=== PATIENT | female | born 1950 | race Caucasian/White ===

== ENCOUNTER → 2016-08-08 | Day surgery (SDC) | payer BC, OTHER ==
[2016-07-18 12:17] VITALS: Ht 160 cm; Wt 109.1 kg
[~2016-08-08] VITALS: Ht 160 cm; Wt 109.1 kg
[~2016-08-08] MED LIST: 500ML BSS 0.3ML EPI 1:1000PF IRRIG ONE; ACET-1256 PO; ACETAMINOPHEN 325 MG TAB PO PRN; ALBI1INJ2 INJ; AMVISC PLUS 0.8ML SYRINGE INT OCU ONE; ATROPINE SULFATE 0.1 MG/ML 5ML SYR IV PRN; BRIMONIDINE TART 0.2% OP SOLN PER DROP CHARGE ONE; ENDOCOAT 0.85ML SYRINGE INT OCU ONE; ERGO1CAP35 PO; EpHEDrine SULFATE INJ 50 MG/ML AMP IV PRN; EpINEphrine INJ 1MG/ML AMP 1 MG/ML AMP ONE; FENTANYL CITRATE INJ 50 MCG/1 ML 2 ML VIAL ONE; KETOROLAC 0.5% OP SOLN PER DROP CHARGE OPR SCH; LACTATED RINGER'S 1000ML 500 ML IV SCH; LIDOCAINE 4% OP SOLN DROP CHARGE ONE; LIDOCAINE 4% OP SOLN DROP CHARGE OPR SCH; LIDOCAINE HCL 1% MPF 2 ML VIAL ONE; METF1TAB53 PO; MIDAZOLAM HCL 1 MG/ML 2ML VIAL ONE; MOXIFLOXACIN OPH SOLN PER DROP CHARGE ONE; POVIDONE-IODINE OP SOLN 30 ML BTL ONE; PROPARACAINE 0.5% OP SOLN PER DROP CHARGE OPR SCH; TELM40TA11 PO; TOBRAMYCIN/DEXAMETHASONE OPH OINT PER APPLN CHARGE ONE; TRYPAN BLUE 0.15% FOR SURGI CENTER ONLY OP ONE; VISIONBLUE 0.06% 0.5ML/SYR OP ONE
[2016-08-08] MEDS: PHENYLEPHRINE HCL 2.5% OP SOLN PER DROP CHARGE OPR SCH ×2 (07:26→07:31)
[2016-08-08] MEDS: TROPICAMIDE 1% OP SOLN PER DROP CHARGE OPR SCH ×2 (07:28→07:32)
[2016-08-08] MEDS: CYCLOPENTOLATE HCL 1% OP SOLN PER DROP CHARGE OPR SCH ×2 (07:29→07:34)
[2016-08-08] MEDS: MOXIFLOXACIN OPH SOLN PER DROP CHARGE OPR SCH ×2 (07:30→07:39)
--- NOTE | 2016-08-08 07:35 | History & Physical Bridge - SC ---
H&P Re-Evaluation Bridge Note: I have examined the patient, reviewed the History & Physical and in the interval since the performance of the History & Physical I have noted the following changes of clinical significance: No changes noted
--- NOTE | 2016-08-08 08:38 | [facility] Post Operative Brief Note ---
Immediate Operative Summary Operative Date Aug 08, 2016. Pre-Operative Diagnosis Right Eye Cataract Post-Operative Diagnosis Same Procedure(s) Performed Right Cataract Phacoemulsification With Intraocular Lens Implant Surgeon Dr. Katherine Nye Coater Smoking Pipe Surgeon(s) None Estimated Blood Loss 0 Findings cataract right eye Specimens None Complication(s) None Disposition Recovery Room / PACU
--- NOTE | 2016-08-08 08:38 | Discharge Instructions-SurgCtr ---
Discharge Instructions Date of Service Aug 08, 2016. Visit Reason for Visit: Cataract Right Eye Discharge Discharge Diagnosis / Problem: cataract right eye Discharge Goals Goal(s): Improve function Medications Stopped Medications Name(s): Metformin stopped Monday Activity Recommendations Activity Limitations: per Instructions/Follow-up section Lifting Limitations: no more than 5 pounds Anesthesia . Post Anesthesia Instructions: If you have had General Anesthesia or IV Sedation: * Do not drive today. * Resume driving when surgeon permits. * Do not make important decisions or sign legal documents today. * Call surgeon for: 1. Temperature elevations greater than 101 degrees F. 2. Uncontrollable pain. 3. Excessive bleeding. 4. Persistent nausea and vomiting. 5. Medication intolerance (nausea, vomiting or rash). * For nausea and vomiting use only clear liquids such as: tea, soda, bouillon until nausea subsides, then gradually increase diet as tolerated. * If you have any concerns or questions, call your surgeon's office. If physician is unavailable and it is an emergency, call 911 or go to the nearest emergency room. . Instructions / Follow-Up Instructions / Follow-Up ACTIVITY RECOMMENDATIONS: * Light activities * You may walk outside, read, watch television. * Mild irritation and blurred vision are common for the first few days, redness around the white part of the eye is common. MEDICATIONS: Resume previous medications unless instructed otherwise by your surgeon. Eye drops (today and tomorrow): Cipro - one drop in operative eye every 2 hours while awake Prednisolone 1% - one drop in operative eye every 2 hours while awake SPECIAL CARE INSTRUCTIONS: * If any problems or concerns, please call Dr. Nye's office at . * Keep plastic shield taped over eye to sleep at night. * Keep plastic shield taped over eye except to administer eye drops. * Keep plastic shield on until office visit the following day. FOLLOW UP VISIT: Follow-up with Dr. Nye in the [place] office as scheduled. If not already scheduled, please call the office at . Diet Recommendations Home Diet: resume previous diet Procedures Procedures Performed: Right Cataract Phacoemulsification With Intraocular Lens Implant Pending Studies Studies pending at discharge: no Medical Emergencies . Who to Call and When: Medical Emergencies: If at any time you feel your situation is an emergency, please call 911 immediately. . Non-Emergent Contact Non-Emergency issues call your: Cattle Dipper . . "Provider Documentation" section prepared by Quincy Nye. .
[2016-08-08 08:40] VITALS: TEMP 36.3
--- NOTE | 2016-08-08 08:50 | Anesthesia Progress Nt - [facility] ---
Anesthesia Post Op Note Date & Time Aug 08, 2016 at 08:50 Vital Signs Pain Intensity: 0 Vital Signs Past 12 Hours Date Time Temp Pulse Resp B/P (MAP) Pulse Ox O2 Delivery O2 Flow Rate FiO2 08/08/16 08:40 36.3 92 18 129/81 (97) 94 Room Air 08/08/16 07:20 36.5 88 20 157/88 (111) 94 Room Air Notes Mental Status: alert / awake / arousable, participated in evaluation Pt Amnestic to Procedure: Yes Nausea / Vomiting: adequately controlled Pain: adequately controlled Airway Patency, RR, SpO2: stable & adequate BP & HR: stable & adequate Hydration State: stable & adequate Anesthetic Complications: no major complications apparent
[2016-08-08 09:03] VITALS: BP 137/84; PULSE 88; O2SAT 95
--- NOTE | 2016-08-08 09:48 | OPERATIVE REPORT ---
DATE OF OPERATION: 08/08/2016 PREOPERATIVE DIAGNOSIS: Dense nuclear sclerotic cataract, right eye. POSTOPERATIVE DIAGNOSIS: Same. PROCEDURE PERFORMED: Phacoemulsification cataract extraction with intraocular lens placement with the use of Trypan blue, right eye. COMPLICATIONS: None. ESTIMATED BLOOD LOSS: None. ANESTHESIA: Local with sedation. DESCRIPTION OF PROCEDURE: After informed consent was obtained in the holding area, the patient was wheeled back to the operating room, where cardiac monitoring leads and oxygen by nasal cannula was administered by anesthesia. Gentle IV sedation was given and the patient's right eye was prepped and draped in the usual sterile fashion. A wire lid speculum was placed in the right eye and the operating microscope swung into position. Due to the patient's corneal edema from the failed PK graft, topical glycerin was placed on the surface of the right eye for approximately 3 minutes. After 3 minutes time and some corneal clearing, the glycerin was irrigated off the surface of the eye. A paracentesis port was then made at the 11 o'clock position of the patient's right eye. The anterior chamber was then filled with 1% nonpreserved lidocaine for anesthesia. Air was then placed inside the anterior chamber, underneath which Trypan blue capsular stain was used to stain the anterior capsule. Primary incision was then made at the 9 o'clock position of the patient's right eye using a 2.2-mm keratome blade. The anterior chamber was then irrigated with BSS to clear out the Trypan blue and an air bubble and EndoCoat and Amvisc was then used in a soft shell fashion. A curved linear capsulorrhexis was then created using a cystotome and Utrata forceps. BSS and hydrodissection cannula was then used to hydrodissect the lens nucleus away from the capsular bag. The phacoemulsification handpiece was then used in a stop and chop fashion to remove the lens nucleus. Irrigation aspiration handpiece was then used to remove the residual cortical material. The eye was then filled with Amvisc and a Bausch and Lomb MX60, 21.0 Diopter intraocular lens was injected into the capsular bag. The primary incision was then hydrated and the irrigation-aspiration handpiece was used to remove the viscoelastic material from the eye. The wounds were noted to be watertight. The wire lid speculum was removed from the eye. Vigamox, brimonidine and TobraDex ointment were placed on the eye and the eye was shielded. The patient tolerated the procedure well and was taken to recovery area in stable condition. I attest to the content of the Intraoperative Record and any orders documented therein. Any exception s are noted below.
== END | disposition home or self-care (01) ==
LOC: X.SURG 06:31
PROVIDERS: ATTEND Ophthalmology
DX: H25.11 Age-related nuclear cataract, right eye (principal); E11.9 Type 2 diabetes mellitus without complications; H18.51 Endothelial corneal dystrophy; I10 Essential (primary) hypertension; Z90.710 Acquired absence of both cervix and uterus; Z83.3 Family history of diabetes mellitus

== ENCOUNTER → 2017-10-02 | Day surgery (SDC) | payer BC, OTHER ==
[2017-09-19 14:47] VITALS: Ht 160 cm; Wt 109.1 kg
[~2017-10-02] VITALS: Ht 160 cm; Wt 109.1 kg
[~2017-10-02] MED LIST changes: -500ML BSS 0.3ML EPI 1:1000PF IRRIG ONE; -ALBI1INJ2 INJ; +ALLERGY TAB PO; -AMVISC PLUS 0.8ML SYRINGE INT OCU ONE; +ATROPINE SULFATE 1% OP SOLN 2 ML BTL ONE; +AcetylCHOLine CHL OP SOL 1:100 2 ML BTL ONE; +BRIMONIDINE TARTRATE 0.2% 5ML ONE; +BSS 500ML IRRIG ONE; +BSS FLUSH ONE; +CHOL1000 PO; +DULO60CA44 PO; -ENDOCOAT 0.85ML SYRINGE INT OCU ONE; -ERGO1CAP35 PO; +HEALON 10MG/ML 0.85 ML SYR INSTIL ONE; -KETOROLAC 0.5% OP SOLN PER DROP CHARGE OPR SCH; +LACTATED RINGER'S 1000ML 1,000 ML IV SCH; -LACTATED RINGER'S 1000ML 500 ML IV SCH; +LIDOCAINE 3.5% OPH GEL PER APPLICATION CHARGE OPR SCH; +LIRA18IN INJ; +NURSING VERBAL MED ORDER ONE; +ONDANSETRON 4MG OD TAB PO STA; +ONDANSETRON 8MG OD TAB ONE; +TETRACAINE HCL (OPHTH) 60 DROPS/4 ML BTL ONE; -TRYPAN BLUE 0.15% FOR SURGI CENTER ONLY OP ONE; -VISIONBLUE 0.06% 0.5ML/SYR OP ONE
[2017-10-02] MEDS: MOXIFLOXACIN OPH SOLN PER DROP CHARGE OPR SCH ×3 (10:18→10:38)
--- NOTE | 2017-10-02 12:00 | [facility] Post Operative Brief Note ---
Immediate Operative Summary Operative Date Oct 02, 2017. 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 Katherine Nye Blow Down Operator Surgeon(s) 0 Estimated Blood Loss 0 Findings Consistent with Post-Op Diagnosis Specimens C&S Corneal Donor Rim Drains None Anesthesia Type MAC Complication(s) none Disposition Accompanied Pt To Recover: no Disposition: Recovery Room / PACU
--- NOTE | 2017-10-02 12:02 | Discharge Instructions-SurgCtr ---
Discharge Instructions Date of Service Oct 02, 2017. Visit Reason for Visit: Right Eye Corneal Transplant Failure Discharge Discharge Diagnosis / Problem: right eye failed DSAEK graft Discharge Goals Goal(s): Improve function Activity Recommendations Activity Limitations: per Instructions/Follow-up section Lifting Limitations: no more than 5 pounds Anesthesia . Post Anesthesia Instructions: If you have had General Anesthesia or IV Sedation: * Do not drive today. * Resume driving when surgeon permits. * Do not make important decisions or sign legal documents today. * Call surgeon for: 1. Temperature elevations greater than 101 degrees F. 2. Uncontrollable pain. 3. Excessive bleeding. 4. Persistent nausea and vomiting. 5. Medication intolerance (nausea, vomiting or rash). * For nausea and vomiting use only clear liquids such as: tea, soda, bouillon until nausea subsides, then gradually increase diet as tolerated. * If you have any concerns or questions, call your surgeon's office. If physician is unavailable and it is an emergency, call 911 or go to the nearest emergency room. . Instructions / Follow-Up Instructions / Follow-Up ACTIVITY RECOMMENDATIONS: * Bedrest- Eyes to the stone MEDICATIONS: Resume previous medications unless instructed otherwise by your surgeon. Eye drops (today and tomorrow): Cipro - one drop in operative eye 4 times a day while awake Prednisolone 1% - one drop in operative eye 4 times a day while awake SPECIAL CARE INSTRUCTIONS: * If any problems or concerns, please call Dr. Nye's office at . * Keep plastic shield taped over eye to sleep at night. * Keep plastic shield taped over eye except to administer eye drops. * Keep plastic shield on until office visit the following day. FOLLOW UP VISIT: Follow-up with Dr. Nye in the [place] office as scheduled. If not already scheduled, please call the office at . Diet Recommendations Home Diet: resume previous diet Procedures Procedures Performed: Right Descements Stripping Automated Endothelial Keratoplasty Pending Studies Studies pending at discharge: no Medical Emergencies . Who to Call and When: Medical Emergencies: If at any time you feel your situation is an emergency, please call 911 immediately. . Non-Emergent Contact Non-Emergency issues call your: Hardware Engineer . . "Provider Documentation" section prepared by Quincy Nye. .
[2017-10-02 12:08] VITALS: TEMP 36.7
--- NOTE | 2017-10-02 12:16 | Anesthesia Progress Nt - [facility] ---
Anesthesia Post Op Note Date & Time Oct 02, 2017 at 12:16 Vital Signs Pain Intensity: 4 Vital Signs Past 12 Hours Date Time Temp Pulse Resp B/P (MAP) Pulse Ox O2 Delivery O2 Flow Rate FiO2 10/02/17 12:08 36.7 87 16 133/78 (96) 96 Room Air 10/02/17 10:02 36.5 84 20 133/77 (95) 97 Room Air Notes Mental Status: alert / awake / arousable, participated in evaluation Pt Amnestic to Procedure: Yes Nausea / Vomiting: adequately controlled Pain: adequately controlled Airway Patency, RR, SpO2: stable & adequate BP & HR: stable & adequate Hydration State: stable & adequate Anesthetic Complications: no major complications apparent
[2017-10-02 12:49] VITALS: BP 129/76; PULSE 79; O2SAT 95
--- NOTE | 2017-10-02 12:53 | OPERATIVE REPORT ---
DATE OF OPERATION: 10/02/2017 PREOPERATIVE DIAGNOSIS: Failed descemet stripping automated endothelial keratoplasty graft, right eye. POSTOPERATIVE DIAGNOSIS: Failed descemet stripping automated endothelial keratoplasty graft, right eye. PROCEDURE PERFORMED: Descemet stripping automated endothelial keratoplasty, right eye. COMPLICATIONS: None. ESTIMATED BLOOD LOSS: None. ANESTHESIA: Local with sedation. DESCRIPTION OF PROCEDURE: After informed consent was obtained in the holding area, attention was first turned to the donor cornea. It was placed endothelial side up on Radha trephine and trephinated with a 7.0 mm Radha trephine blade. It was then covered in Optisol and set aside. The patient was then brought back to the operating room where cardiac monitoring leads and oxygen by nasal cannula was administered by anesthesia. Gentle IV sedation was given, and the patient's right eye was prepped and draped in usual sterile fashion. Wire lid speculum was placed in the right eye and the operating microscope swung into position. Using 0.12 forceps and MVR blade, the suture at the 9 o'clock position of the patient's right eye was cut and removed. 1% lidocaine was then injected into the anterior chamber through the previously made paracentesis at the 12 o'clock position of the patient's right eye. A Healon cannula was then used to reopen the main incision at the 9 o'clock position and Healon was injected into the anterior chamber. The failed DSAEK graft was grasped with Utrata forceps and removed from the eye. Irrigation aspiration handpiece was then used to remove the Healon from the eye. Miochol was then injected into the eye to bring the pupil down. The donor graft was then placed on an EndoSerter and a drop of Healon was placed on it and the graft was retracted into the EndoSerter. The EndoSerter was then used to inject the graft into the anterior chamber. It was unfolded underneath BSS and air. A single 10-0 nylon suture was placed through the primary incision. A complete air fill of the eye was achieved and the graft was centered and the air fill was held for 15 minutes during which time 3 drops of atropine were placed on the eye and the eye was then covered in Healon. After the first 15 minutes were up, the Cherry [employer]ik roller was used to milk the interface and some extra air was injected into the anterior chamber. Another 10 minutes elapsed after which time the Healon was removed from the surface of the cornea and a partial air fluid exchange was done leaving behind an 80% air fill. ReSure sealant was then placed over the incisions. The wire lid speculum was removed from the eye. Vigamox and TobraDex ointment were placed on the eye and the eye was shielded. The patient was taken to the recovery area to lay flat for an hour prior to being discharged home. I attest to the content of the Intraoperative Record and any orders documented therein. Any exception s are noted below.
== END | disposition home or self-care (01) ==
LOC: X.SURG 09:26
PROVIDERS: ATTEND Ophthalmology
DX: T86.841 Corneal transplant failure (principal); Y83.2 Surgical operation with anastomosis, bypass or graft as the cause of abnormal reaction of the patient, or of later complication, without mention of misadventure at the time of the procedure; I10 Essential (primary) hypertension; E11.9 Type 2 diabetes mellitus without complications; M19.90 Unspecified osteoarthritis, unspecified site; Z88.6 Allergy status to analgesic agent; E66.9 Obesity, unspecified; Z68.41 Body mass index [BMI] 40.0-44.9, adult; Z79.899 Other long term (current) drug therapy; Z79.84 Long term (current) use of oral hypoglycemic drugs